=== PATIENT | male | born 1965 | race Caucasian/White ===

== ENCOUNTER 2023-09-09 13:49 | Inpatient (IN) | payer OTHER, SELFPAY ==
[2023-09-09] VITALS (7 sets, daily range): BP systolic 94–113; BP diastolic 57–73; BMI 23.3; BMI 20.1
--- NOTE | 2023-09-09 11:09 | ED.GENMED ---
History of Present Illness
General
Chief Complaint: Cold/Flu/URI Symptoms
Source: patient
Time Seen by Provider: 09/09/23 10:47
Travel History
Have you had any contact with someone who has COVID-19?: No
Do you have any symptoms of coronavirus? Fever > 100 degrees, chills, cough, shortness of breath, sore throat, loss of taste or smell, muscle aches, or headache?: Yes
Symptoms:: fever
History of Present Illness
History of Present Illness:
57-year-old male with no significant past medical history presented to the ER via EMS for evaluation of fever, nasal congestion, cough and diffuse bodyaches that been ongoing since August 29, yesterday started to feel better and felt symptoms were
resolved however in the evening time symptoms returned and continued this morning prompting him to call EMS. Patient did take Tylenol prior to arrival. He notes that his girlfriend with whom he lives with is also sick with the same symptoms. They
did not receive any further medical care or checked themselves for COVID. Patient denies any abdominal pain, urinary symptoms, bowel changes, chest pain, palpitations, diaphoresis or any other concerns. Social history was significant for smoking 5
or 6 cigarettes/day.
Past History
Past History
ED Past Medical History: Psychiatric (Anxiety)
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
Social History
Tobacco: Smoker
Alcohol: None
Drug: None
Personal: Partner
Living: with family
Employment: Employed
Family History
Family History: Other
Review of Systems
Review of Systems
All Other Systems: ROS reviewed and negative except as documented in HPI and ROS
Phy Exam
Physical Exam
Physical Exam:
GENERAL: Alert , in no apparent distress
EYE: conjunctiva clear
NECK: Supple, no significant adenopathy.
ENT: o/p clr, mmm.
CARDIAC: Regular rate and rhythm
LUNGS: Rhonchorous lung sounds posterior lung urbina bibasilar, no rales or wheezing, no tachypnea or accessory muscle use, no respiratory distress
NEUROLOGICAL: Alert and oriented
SKIN: Warm and dry, skin intact.
MUSCULOSKELETAL: well perfused.
PSYCH: Normal and appropriate interaction.
Scores
Heart Failure Risk
Heart Failure Risk Score: Not Applicable
Heart Score for Chest Pain Patients
STEMI patient?: Not applicable
Withdrawal Assessment of Alcohol
Withdrawal Assessment Completed?: Not applicable
Course
Orders/Labs/Results
Orders:
Orders
09/09/23 10:53
Acetaminophen [Tylenol] 1,000 mg PO NOW STA
09/09/23 10:58
COVID-19 Antigen Urgent
Source: Nasal Swab
Influenza A+B Rapid Molecular Urgent
TEMO Source: Nasal Swab
Specimen Description:
09/09/23 11:02
Complete Blood Count/With Diff Urgent
09/09/23 11:03
Urinalysis Reflex To Culture Urgent
Date Specimen was Collected: 09/09/23
Time Specimen was Collected: 11:04
CR Chest - 2 Views Urgent
Comment:
Reason For Exam: fever, cough
09/09/23 11:12
Comprehensive Metabolic Panel Urgent
09/09/23 11:30
Lactic Acid Q4H
Comment: CANCEL 2nd LACTIC ACID IF 1st LACTIC ACID IS LESS THAN 2
0.9% Sodium Chloride 1000 ml [Nss] 1,000 ml IV BOLUS
09/09/23 11:34
Lactic Acid Q4H
Comment: CANCEL 2nd LACTIC ACID IF 1st LACTIC ACID IS LESS THAN 2
Blood Culture Q30M
TEMO Source: Blood/Venous
Specimen Description:
09/09/23 11:39
CefTRIAXone [Rocephin] 1,000 mg IV NOW STA
Doxycycline [Vibramycin] 100 mg PO NOW STA
09/09/23 11:49
Blood Culture Q30M
TEMO Source: Blood/Venous
Specimen Description:
Abnormal Lab Results
09/09/23 09/09/23 09/09/23
11:02 11:12 11:34
WBC 24.1 H 10^3/uL
(4.8-10.8)
RBC 4.25 L 10^6/uL
(4.70-6.10)
MCH 32.5 H pg
(27.0-31.0)
MPV 11.0 H fL
(7.4-10.4)
Sodium 132 L mmol/L
(135-145)
Carbon Dioxide 19 L mmol/L
(22-30)
Glucose 179 H mg/dl
(70-99)
Lactic Acid 2.9 H mmol/L
(0.7-2.0)
Calcium 8.3 L mg/dl
(8.4-10.2)
Total Protein 5.9 L g/dl
(6.3-8.2)
Albumin 3.4 L g/dl
(3.5-5.0)
09/09/23 11:02
09/09/23 11:12
Vital Signs
Initial and Last Documented VS:
Initial Vital Signs
Temp Pulse Resp BP Pulse Ox
100.3 F 92 16 100/57 97
09/09/23 10:46 09/09/23 10:46 09/09/23 10:46 09/09/23 10:46 09/09/23 10:46
Last Documented Vital Signs
Temp Pulse Resp BP Pulse Ox
100.3 F 92 16 99/73 93
09/09/23 10:46 09/09/23 10:46 09/09/23 10:46 09/09/23 11:48 09/09/23 11:49
MDM/Problems Addressed
Differential Diagnosis Includes:
COVID, flu, other viral etiology, pneumonia
MDM/Problems Addressed:
57-year-old male presenting emergency department for evaluation of fevers times greater than 1 week, known sick contacts at home, persistent symptoms despite taking Motrin and Tylenol. Patient did take Tylenol earlier this morning, still low-grade
fever here. Will treat with p.o. Motrin. COVID and flu testing ordered. Labs, urine and chest x-ray ordered as well. Patient is otherwise stable.
*Radiology
Radiology exam reviewed: preliminary read by ED provider (Right perihilar pneumonia)
*Pulse Oximetry
Patient hypoxic: no
*Critical Care Note
Total Time (30-74mins, 75-104mins- exclusive of procedures): Not Applicable
Patient Management
Discussion with other providers: Hospitalist
Escalation/DeEscalation of care consider admission/obs:
Patient has a significant leukocytosis of 24,000. Lactic acid also elevated at 2.9 and blood pressure was little soft at 99/73. Fluids ordered. Antibiotics ordered. Chest x-ray shows right perihilar pneumonia. Will admit to hospital for
antibiotics and monitoring. Patient is agreeable with this plan. Hospitalist is aware and accepts patient for continued evaluation and treatment.
ED Attending Note
-
Portions of this chart may have been created with voice recognition software.� Occasional wrong word or��sound alike� substitutions may have occurred due to the inherent limitations of voice recognition software.
Discharge Plan
Departure
Patient Disposition: Admit
Date of Disposition: 09/09/23
Time of Disposition: 11:56
Presentation/result/management discussed w/ accepting MD/DO: Hospitalist
Discharge Problem:
Pneumonia
Prescriptions:
No Action
pseudoephedrine HCl [Sudafed] 30 mg Tablet
30 mg PO DAILY PRN (Reason: allergies)
Referrals:
UNKNOWN - PT DOES,NOT KNOW [Family Provider] -
Interventions
Interventions:
*Risk Screen - Suicide Last Done: 09/09/23 10:46
*General Assessment Last Done: 09/09/23 10:46
*Neglect/Abuse Screening Last Done: 09/09/23 10:46
ED- Pulmonary Assessment Last Done: 09/09/23 12:01
[2023-09-09 11:19] LABS: COVID-19 Antigen Negative (Negative)
[2023-09-09 11:32] LABS: % Basophils 0.2 % (0-2); % Immature Granulocytes 1.5 % (0-0.5); % Monocytes 4.5 % (1.7-9.3); % Neutrophils 91.8 % (42.2-75.2); Absolute Basophils 0.1 10^3/uL (0-0.2); Absolute Immature Granulocytes 0.4 10^3/uL (0-0.05); Absolute Lymphocytes 0.5 10^3/uL (1.2-3.4); Absolute Monocytes 1.1 10^3/uL (0.1-0.6); Absolute Neutrophils 22.1 10^3/uL (1.4-6.5); Hemoglobin 13.8 g/dL (13.0-18.0); Mean Corp Hgb Conc. 35.4 g/dL (33.0-37.0); Mean Corpuscular Hgb 32.5 pg (27.0-31.0); Mean Corpuscular Volume 91.8 fL (80.0-94.0); Nucleated Red Blood Cells % 0 % (-); Platelet Count 250 10^3/uL (130-400); Red Blood Cell Count 4.25 10^6/uL (4.70-6.10); Red Cell Dist. Width 12.7 % (11.5-14.5); White Blood Cell Count 24.1 10^3/uL (4.8-10.8)
[2023-09-09] MEDS: NSS 1000 IV ×2 (11:39→16:43)
[2023-09-09 11:40] LABS: ALT (SGPT) 29 U/L (0-50); AST (SGOT) 27 U/L (17-59); Albumin 3.4 g/dl (3.5-5.0); Alkaline Phosphatase 54 U/L (38-126); Blood Urea Nitrogen 13 mg/dl (9-20); Calcium 8.3 mg/dl (8.4-10.2); Carbon Dioxide 19 mmol/L (22-30); Chloride 107 mmol/L (98-107); Estimated Creatinine Clearance 106 ml/min; Glucose 179 mg/dl (70-99); Potassium 4.3 mmol/L (3.5-5.1); Sodium 132 mmol/L (135-145); Total Bilirubin 0.7 mg/dl (0.2-1.3); Total Protein 5.9 g/dl (6.3-8.2); eGFR > 60.00
[2023-09-09] MEDS: VIBRAMYCIN 100 MG PO ×2 (11:48→19:37)
[2023-09-09] MEDS: ROCEPHIN 1000 MG IV (11:48)
[2023-09-09 12:12] LABS: Lactic Acid 2.9 mmol/L (0.7-2.0)
[2023-09-09 13:28] LABS: Urine Albumin Negative (Neg - Trace); Urine Bilirubin Negative (Negative); Urine Character Clear (Clear); Urine Color Yellow; Urine Glucose Negative (Negative); Urine Ketone Negative (Negative); Urine Leukocyte Negative (Negative); Urine Nitrite Negative (Negative); Urine Occult Blood Negative (Negative); Urine Urobilinogen Negative (Neg - 1+)
--- NOTE | 2023-09-09 13:46 | HPS.HSE ---
Family Physician
-
Family Physician: NOT KNOW UNKNOWN - PT DOES
Chief Complaint
-
Fever and respiratory symptoms
History of Present Illness
Started to notice fevers from August 31. Febrile every day. As high as 103.
He thought he broke his fever yesterday and was feeling okay but this morning he started to have fevers again and started to feel crappy.
With this he was also having some nasal congestions at onset. He is also having cough which is productive of thick green phlegm.
Was feeling little short of breath. No chest pain.
He was feeling bit nauseous. No vomiting. No abdominal pain.
He started to notice pains especially in the mid back area this week and also some achiness in the lower extremities.No sciatica .
He also feels achy all over.
No trauma
Medical History
Past Medical History
Past Medical History: Reports None
Past Surgical History: Reports None
Social History
Tobacco: Smoker (5-6 cig /day for 30 plus years)
Alcohol: None
Drug: None
Personal: Partner
Family History
Family History: Not pertinent
Allergies / Home Medications
Allergies reflects when Allergies were last updated in [employer].
Home Medications with original date entered in [employer]
Allergy/Medication List:
Allergies
Allergy/AdvReac Type Severity Reaction Status Date / Time
hydrocodone bitartrate Allergy Pharmacy Verified 03/10/23 14:20
[From Vicodin] to Review
[facility] Allergy Unknown Uncoded 03/10/23 14:20
seasonal allergies Allergy nasal Uncoded 03/10/23 14:20
symptoms
Home Medications
pseudoephedrine HCl 30 mg tablet (Sudafed) 30 mg PO DAILY PRN allergies 09/09/23
Review of Systems
-
A 12 point ROS was completed and negative except as noted: Yes
Physical Exam
Vital Signs
Vital Signs
Temp Pulse Resp BP Pulse Ox
100.3 F 92 16 113/68 95
09/09/23 10:46 09/09/23 10:46 09/09/23 10:46 09/09/23 13:00 09/09/23 13:15
Physical Exam
General: Well Nourished
HEENT: Moist mucous membranes
Respiratory: Clear
Cardiac: S1/S2 and Regular Rhythm
GI: Soft, Non Tender, Non Distended and Normal Bowel Sounds
Neuro: AO x 3
Psych: Calm
Laboratory Results
-
09/09/23 11:02
09/09/23 11:12
Laboratory Results
Lactic Acid 2.9 mmol/L (0.7-2.0) H 09/09/23 11:34
Total Bilirubin 0.7 mg/dl (0.2-1.3) 09/09/23 11:12
AST 27 U/L (17-59) 09/09/23 11:12
ALT 29 U/L (0-50) 09/09/23 11:12
Alkaline Phosphatase 54 U/L (38-126) 09/09/23 11:12
Data Reviewed
-
Diagnostic Radiology: Report Reviewed by me (cxr)
Lab Data: Labs Reviewed by me
Impression/Plan
-
Community-acquired pneumonia-patient presents with prodrome of upper respiratory symptoms which are persistent and now with leukocytosis and a chest x-ray concerning for right hilar/perihilar pneumonia. His COVID and flu negative. Treat as
community-acquired pneumonia with ceftriaxone and Zithromax. Follow culture data. The way the pneumonia is distributed and him being a smoker would follow his chest x-ray closely after treatment with antibiotics. If persistent abnormality will
get CT chest for further evaluation.
Back pain-located to mid back. He also has generalized aches and pains and this could be all related to pneumonia. Get a plain x-rays thoracolumbar spine.
Current smoker-counseled about smoking.
Full code
--- NOTE | 2023-09-09 15:15 | PTCARENOTE ---
Patient admitted into room 414-2. AAOx3. Able to make needs known. NSS running at 100ml/hr. Patient reports back/leg pain, see MAR. Awaiting xray of spine. Will monitor.
[2023-09-09] MEDS: TYLENOL 650 MG PO (16:32)
[2023-09-09 16:46] LABS: Lactic Acid 1.6 mmol/L (0.7-2.0)
[2023-09-09] MEDS: LOVENOX 40 MG SC (18:42)
[2023-09-09] MEDS: MUCINEX 600 MG PO (19:37)
[2023-09-10] MEDS: NSS 1000 IV (02:44)
[2023-09-10 07:00] VITALS: BP 115/77
[2023-09-10 08:13] LABS: Hematocrit 40.3 % (39.0-52.0); Mean Corp Hgb Conc. 34.7 g/dL (33.0-37.0); Mean Corpuscular Hgb 32.6 pg (27.0-31.0); Mean Corpuscular Volume 93.9 fL (80.0-94.0); Platelet Count 250 10^3/uL (130-400); Red Blood Cell Count 4.29 10^6/uL (4.70-6.10); Red Cell Dist. Width 12.9 % (11.5-14.5); White Blood Cell Count 16.3 10^3/uL (4.8-10.8)
[2023-09-10 08:31] LABS: Blood Urea Nitrogen 11 mg/dl (9-20); Calcium 8.4 mg/dl (8.4-10.2); Carbon Dioxide 27 mmol/L (22-30); Chloride 106 mmol/L (98-107); Estimated Creatinine Clearance 94 ml/min; Glucose 100 mg/dl (70-99); Potassium 4.7 mmol/L (3.5-5.1); Sodium 137 mmol/L (135-145); eGFR > 60.00
[2023-09-10] MEDS: VIBRAMYCIN 100 MG PO (09:35)
[2023-09-10] MEDS: NICODERM TRANSDERMAL 14 MG TRANSDERM (09:35)
[2023-09-10] MEDS: MUCINEX 600 MG PO (09:35)
--- NOTE | 2023-09-10 10:55 | CM ---
Addendum entered by Cary Clark 09/10/23 15:42:
Patient left hospital AMA
Addendum entered by Cary Clark 09/10/23 11:03:
Primary Physician verified: Ismael Martin MD, [facility], # [phone]
Original Note:
Met with patient at bedside; initial assessment completed
Pharmacy verified: [facility]
Patient reports he lives with his fiance in a one floor apartment; located above a garage; 20 steps to enter; has 1 and a half baths; one has stall shower the other has tub with shower; both have grab bars
PLOF: reports he is independent with ambulation, stairs, and ADLs; drives
DME: grab bars in bathrooms; TENS unit used occasionally
SNF/Rehab/Home Care utilization history: none
Transport: friend will provide ride home
Plan: discharge to home without services
[2023-09-10] MEDS: STERILE WATER FOR INJECTION 10 ML IV (11:44)
[2023-09-10] MEDS: ROCEPHIN 1000 MG IV (11:44)
--- NOTE | 2023-09-10 12:08 | W.PN.HOSP.TC ---
Today's Communication/Plan
-
with positive blood culture, until fully ID'd, cont current ABX
if pt insists on leaving, will be AMA
Assessment / Plan
Assessment / Plan
pt is a 57 year old male
Community-acquired pneumonia--patient presents with prodrome of upper respiratory symptoms which are persistent and now with leukocytosis and a chest x-ray concerning for right hilar/perihilar pneumonia.� His COVID and flu negative.� Treat as
community-acquired pneumonia with ceftriaxone and Zithromax. blood culture positive for Staph species.� The way the pneumonia is distributed and him being a smoker would follow his chest x-ray closely after treatment with antibiotics.� If persistent
abnormality will get CT chest for further evaluation.
Back pain-located to mid back.� He also has generalized aches and pains and this could be all related to pneumonia
Current smoker-counseled about smoking.
Full code
Anticipated Discharge: 24 - 48 hours
Subjective/Interval History
-
Date of Service: September 10, 2023
pt wants to go home--feeling better
Objective Data
-
Labs:
Laboratory Results
09/10/23
07:47
WBC 16.3 H
Hgb 14.0
Hct 40.3
Plt Count 250
Sodium 137
Potassium 4.7
Chloride 106
Carbon Dioxide 27
BUN 11
Creatinine 0.7
Glucose 100 H
Calcium 8.4
Vital Signs:
max temp for 24 hours
09/09/23
10:46
Temp 100.3 F
Vital Signs
Temp Pulse Resp BP Pulse Ox
98.1 F 85 18 115/77 98
09/10/23 07:00 09/10/23 07:00 09/10/23 07:00 09/10/23 07:00 09/10/23 07:00
I&O
09/09/23 09/10/23 09/11/23
06:59 06:59 06:59
Intake Total 2400 / 2400
Output Total 625 / 625
Balance 1774 / 1774
Review of Systems
-
All other systems: Reviewed and negative
Physical Exam
-
General: Well Developed, Well Nourished and No Apparent Distress
HEENT: Normocephalic and Atraumatic; Negative Oxygen
Respiratory: Clear to Auscultation; Negative Wheezes, Rales, Rhonchi or Crackles
Cardiac: Regular Rhythm and S1/S2; Negative Murmur
GI: Soft, Nontender, Nondistended and Normal Bowel Sounds
Musculoskeletal: No Clubbing, No Cyanosis and No Edema
Skin: Warm
Neuro: Awake
--- NOTE | 2023-09-10 14:45 | W.DCSUMMARY ---
Discharge Summary
Discharge Data
Date of Admission: 09/09/23
Date of Discharge: 09/10/23
-
Pending Results: Yes
Additional Pending Results:
Final results of blood culture
Hospital Course
Primary care physician : Not listed
Principal Discharge diagnosis : Community-acquired pneumonia with bacteremia
Chronic Discharge diagnosis : Back pain
Hospital Course : Patient was a 57-year-old male who started to notice fevers on August 31. He stated he was feverish every day as high as 103. On the day prior to admission, he thought his fever broke but he had fevers again and felt 'crappy'.
He was having nasal congestion. He had a cough productive of thick green phlegm. He was feeling short of breath. He also noted pain in his mid back area this week as well. Patient was found to have pneumonia and was admitted.
Problem #1: Community-acquired pneumonia with bacteremia. Patient was admitted and started on ceftriaxone and doxycycline. Chest x-ray showed right hilar/perihilar pneumonia. COVID and flu were negative. Blood culture was positive for
Staphylococcus species but not finalized. It is possible that this could be a contaminant. Patient does not wish to stay in the hospital for any further treatments since he is feeling better. I did explain to him that his blood cultures are
positive and we would need to sort out what is going on with that. He understands but is insistent on leaving. Therefore he is leaving AGAINST MEDICAL ADVICE.
Problem #2: Back pain. This is likely related to his pneumonia. He is feeling better today.
Patient is leaving AGAINST MEDICAL ADVICE. Augmentin has been sent to his pharmacy. It is recommended he follow-up with his primary care physician in less than 1 week. If there are any questions regarding this dictation or his hospital stay,
please not hesitate to call. Our office number is [phone].
Discharge Plan
-
Patient Disposition: Against Medical Advice
Discharge Diagnosis/Procedures: Community-acquired pneumonia, back pain
Condition: Good
Diet: As tolerated and Regular
Activity: As tolerated
Driving Restrictions: As prior to admission
Bathing Restrictions: None
Referrals:
UNKNOWN - PT DOES,NOT KNOW [Family Provider] - in less than 1 week
Prescriptions:
New
guaifenesin 600 mg Tablet Extended Release 12hr
600 mg PO Q12 Qty: 0 0RF
amoxicillin-pot clavulanate 500-125 mg tablet
1 tab PO BID Qty: 20 0RF
Continued
pseudoephedrine HCl [Sudafed] 30 mg Tablet
30 mg PO DAILY PRN (Reason: allergies)
acetaminophen [Tylenol] 325 mg Capsule
650 mg PO Q4H PRN (Reason: PAIN)
Discharge Orders:
Discharge Patient (As Directed); Ordered 09/10/23
Ordered By: Rebecca Laguna
[2023-09-10] MEDS: FLUZONE QUAD 2023-2024 SYRINGE 0.5 ML IM (15:10)
== END 2023-09-10 16:42 | disposition left against medical advice (07) | DRG 194 ==
LOC: 4 WEST ACU 13:49
PROVIDERS: Physician Assistant Medical; ADMITTING PHYSICIAN Internal Medicine; ATTENDING PHYSICIAN Internal Medicine; EMERGENCY PHYSICIAN Emergency Medicine
PROC: 3E02340 Introduction of Influenza Vaccine into Muscle, Percutaneous Approach (ICD-10-PCS; 2023-09-10)
DX: J18.9 Pneumonia, unspecified organism (principal); R78.81 Bacteremia; F41.9 Anxiety disorder, unspecified; F17.210 Nicotine dependence, cigarettes, uncomplicated; M54.9 Dorsalgia, unspecified; J30.2 Other seasonal allergic rhinitis; Z91.030 Bee allergy status; Z23 Encounter for immunization; Z11.52 Encounter for screening for COVID-19; Z88.5 Allergy status to narcotic agent
CPT/HCPCS: 71046; 72070; 72100; 80048; 80053; 81003; 83605; 85025; 85027; 87040; 87149; 87205; 87502; 87811; 90686; 96361; 96374; 99284; G0008